=== PATIENT | male | born 1945 | race Caucasian/White ===

== ENCOUNTER 2016-07-17 21:45 | Emergency (ER) | payer OTHER ==
[2016-07-17 21:59] VITALS: RESP 16
--- NOTE | 2016-07-17 22:13 | EDPHY ---
H & P Stated Complaint: dizziness x1w w/ subsequent nausea & vomiting; recent URI, wt loss HPI/ROS: HPI CHIEF COMPLAINT: Dizziness, nausea, neck pain HISTORY OF PRESENT ILLNESS: This patient very pleasant 70-year-old male significant past medical history for hypertension, PTSD, depression, presents emergency room by private vehicle with his for dizziness. He states for the past approximately a week or 6-7 days he has had dizziness intermittently multiple occasions. He tells me this started after he had upper respiratory tract infection that settled into his chest, he states over the past 6 days he has had intermittent episodes of dizziness which she describes as with his eyes the room does not stay steady. He denies room spinning denies ringing in his ears. He does endorse some sinus congestion. However he also tells me that he has some left-sided posterior neck pain at the base of his left occiput. This has been a chronic issue not new. He denies chest pain, shortness of breath, fever. Does endorse recent illness with upper respiratory tract infection. He states at times been so dizzy that he had this hold onto the wall. He denies double vision. Or headache. Denies numbness or tingling or focal weakness. Past Medical History: Hypertension, depression, PTSD Past Surgical History: Denies recent surgery Social History: Denies daily use drugs alcohol tobacco products, lives locally here [place] at bedside Family History: Noncontributory ROS REVIEW OF SYSTEMS: A comprehensive 10 point review of systems is otherwise negative aside from elements mentioned in the history of present illness. Exam Constitutional appears well nontoxic, triage nursing summary reviewed, vital signs reviewed, awake/alert. Eyes normal conjunctivae and sclera, EOMI, PERRLA. HENT Right TM normal, Left TM fluid filled, no bulge, no redness, Anterior sinus: nttp. normal inspection, atraumatic, moist mucus membranes, no epistaxis , neck supple/ no meningismus, no raccoon eyes. Respiratory clear to auscultation bilaterally, normal breath sounds, no respiratory distress, no wheezing. Cardiovascular rate normal, regular rhythm, no murmur, no edema, distal pulses normal. Gastrointestinal soft, non-tender, no rebound, no guarding, normal bowel sounds, no distension, no pulsatile mass. Genitourinary no CVA tenderness. Musculoskeletal no midline vertebral tenderness, full range of motion, no calf swelling, no tenderness of extremities, no meningismus, good pulses, neurovascularly intact. Skin pink, warm, & dry, no rash, skin atraumatic. Neurologic awake, alert and oriented x 3, AAOx3, moves all 4 extremities equally, motor intact, sensory intact, CN II-XII intact, normal cerebellar, normal vision, normal speech. Psychiatric normal mood/affect. Heme/Lymph/Immune no lymphadenopathy. 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 meclizine 25 mg, CT angio head and neck to rule out vascular issue. Re-evaluation: EKG interpretation by me on record in [employer] system. Impression time of EKG 2253, this is sinus rhythm rate of 56, left axis deviation present. Unremarkable EKG no acute ischemia. It is noted there are Q-waves in two, 3, avf. CT scan of the angiogram head and neck with IV contrast. The results of the study are negative for acute abnormality specifically no dissection or arterial injury or occlusion. The study was read by Dr. Thakkar. I viewed the images myself on the PACS system. ED x-ray chest one view: Negative for acute cardiopulmonary disease. Image interpreted by myself. 0100AM: Re-evaluation at this time this patient is resting comfortably. Blood work is reviewed and is unremarkable negative troponin nonischemic EKG CT angiogram head and neck are negative for dissection bleed or occlusion. I feel that his vertigo is most likely peripheral or inner ear. Recommend meclizine and Valium. ENT follow-up. He is agreeable for this plan would like to be discharged home. I did ambulating throughout the emergency room he has a steady gait no ataxia does not feel acutely dizzy no nausea vomiting or chest pain or shortness of breath. He does understand what to return emergency room for which includes chest pain, shortness of breath severe dizziness or vomiting. Source: Patient - Personal History Current Tetanus/Diphtheria Vaccine: Yes Current Tetanus Diphtheria and Acellular Pertussis (TDAP): Yes - Medical/Surgical History Hx Asthma: No Hx Chronic Respiratory Disease: No Hx Diabetes: No Hx Cardiac Disease: No Hx Renal Disease: No Hx Cirrhosis: No Hx Alcoholism: No Hx HIV/AIDS: No Hx Splenectomy or Spleen Trauma: No Other PMH: PSH: L partial knee x2; B v veins LE stripped; R thumb; T&A; wisdom teeth;. PMH: HTN, BPH; PNA; PTSD; depression; prediabetes - Social History Smoking Status: Former smoker Constitutional: Initial Vital Signs Heart Rate 60 07/17/16 21:50 Respiratory Rate 16 07/17/16 21:50 Blood Pressure 134/88 H 07/17/16 21:50 O2 Sat (%) 95 07/17/16 21:50 O2 Delivery Mode Room Air Allergies/Adverse Reactions: cortisone Allergy (Verified 07/08/15 11:26) Tetracyclines Allergy (Verified 07/17/16 22:00) ADHESIVE TAPE Allergy (Uncoded 07/08/15 11:26) Home Medications: Medication Instructions Recorded Ascorbic Acid [C-1000] 1,000 mg PO DAILY PRN 01/23/15 Atenolol [Tenormin 25 mg (*)] 25 mg PO DAILY 01/23/15 Finasteride [Proscar 5 MG (*)] 5 mg PO HS 01/23/15 Herbals/Supplements -Info Only 1 ea PO AD 01/23/15 Hydrochlorothiazide [HCTZ (*)] 25 mg PO DAILY 01/23/15 Magnesium Oxide [Magnesium Oxide 500 mg PO HS 01/23/15 500 mg] Omeprazole [Prilosec 20 mg] 20 mg PO DAILY 01/23/15 Vitamin B Complex [B Complex] 1 each PO DAILY 01/23/15 Aspirin EC [Aspirin EC 325 mg (*)] 325 mg PO DAILY #20 tab 03/05/15 Diazepam [Valium 5 MG (*)] 5 mg PO TID PRN #15 tab 07/18/16 Meclizine HCl [Meclizine HCl 25 mg 25 mg PO BID #20 tab 07/18/16 (RX,OTC)] Medical Decision Making - Diagnostics Imaging Results: Imaging Impressions Chest X-Ray 07/17/16 22:32 Impression: Chest negative for acute cardiopulmonary abnormality. Head CTA 07/17/16 22:32 Impression: Negative CT angiography of the neck with no arterial occlusive disease identified. CT Angiography of the Head With Attention to the [place] Reason for examination: Dizziness; evaluate for arterial occlusive disease. Technique: A spiral acquisition was performed from the base of the brain to the vertex during rapid intravenous administration of 75 mL of Isovue-370. This contrast volume was utilized for evaluation of the neck and head. Axial images are obtained at 0.6 mm thickness and the examination is reviewed on the workstation in multiple window and level settings. Sagittal and coronal reformats are performed and three-dimensional reformations are performed by the radiologist on the workstation. Dose reduction techniques were utilized. Findings: There is excellent arterial opacification. The great vessels at the base of the brain are normal in appearance. The anterior and middle cerebral arteries appear normal. The [place] is intact with both anterior and posterior communicating arteries identified. The basilar artery as well as posterior cerebral arteries are normal. No regions of stenosis are identified. No hemorrhages are seen and no vascular malformations are identified. No areas of abnormal perfusion are identified and there are no findings to suggest cortical ischemia. Impression: Normal CT angiography of the head with attention to the great vessels of the [place]. Note: All stenoses are calculated using NASCET Criteria. Results called and discussed with Maurcie Melendez MD on 07/18/2016 at 0:31 Neck CTA 07/17/16 22:32 Impression: Negative CT angiography of the neck with no arterial occlusive disease identified. CT Angiography of the Head With Attention to the [place] Reason for examination: Dizziness; evaluate for arterial occlusive disease. Technique: A spiral acquisition was performed from the base of the brain to the vertex during rapid intravenous administration of 75 mL of Isovue-370. This contrast volume was utilized for evaluation of the neck and head. Axial images are obtained at 0.6 mm thickness and the examination is reviewed on the workstation in multiple window and level settings. Sagittal and coronal reformats are performed and three-dimensional reformations are performed by the radiologist on the workstation. Dose reduction techniques were utilized. Findings: There is excellent arterial opacification. The great vessels at the base of the brain are normal in appearance. The anterior and middle cerebral arteries appear normal. The [place] is intact with both anterior and posterior communicating arteries identified. The basilar artery as well as posterior cerebral arteries are normal. No regions of stenosis are identified. No hemorrhages are seen and no vascular malformations are identified. No areas of abnormal perfusion are identified and there are no findings to suggest cortical ischemia. Impression: Normal CT angiography of the head with attention to the great vessels of the [place]. Note: All stenoses are calculated using NASCET Criteria. Results called and discussed with Maurice Melendez MD on 07/18/2016 at 0:[address] 07/17/16 23:43 Impression: 1. Negative for intracranial abnormality. 2. Minimal right maxillary sinus disease. Results called and discussed with Maurice Melendez MD on 07/18/2016 at 0:12 result - Data Points Laboratory Results: Laboratory Results 07/17/16 22:13 07/17/16 22:13 07/17/16 07/17/16 07/17/16 23:00 22:13 22:13 WBC RBC Hgb Hct MCV MCH MCHC RDW Plt Count MPV Neut % (Auto) Lymph % (Auto) [place] % (Auto) Eos % (Auto) Baso % (Auto) Nucleat RBC Rel Count Absolute Neuts (auto) Absolute Lymphs (auto) Absolute Monos (auto) Absolute Eos (auto) Absolute Basos (auto) Absolute Nucleated RBC Immature Gran % Immature Gran # PT 12.5 SEC SEC REJ (12.0-15.0) INR 0.94 REJ (0.83-1.16) APTT 38.3 SEC H SEC REJ (23.0-38.0) Sodium 136 mEq/L mEq/L (134-144) Potassium 3.8 mEq/L mEq/L (3.5-5.2) Chloride 102 mEq/L mEq/L (97-110) Carbon Dioxide 26 mEq/l mEq/l (22-31) Anion Gap 8 mEq/L mEq/L (8-16) BUN 21 mg/dL mg/dL (7-23) Creatinine 0.9 mg/dL mg/dL (0.7-1.3) Estimated GFR > 60 Glucose 200 mg/dL H mg/dL (70-100) Calcium 9.6 mg/dL mg/dL (8.5-10.4) Magnesium 2.0 mg/dL mg/dL (1.6-2.3) Total Bilirubin 0.8 mg/dL mg/dL (0.1-1.4) Conjugated Bilirubin 0.3 mg/dL mg/dL (0.0-0.5) Unconjugated Bilirubin 0.5 mg/dL mg/dL (0.0-1.1) AST 39 IU/L IU/L (17-59) ALT 45 IU/L IU/L (21-72) Alkaline Phosphatase 66 IU/L IU/L (38-126) Creatine Kinase 167 IU/L IU/L (0-224) CK-MB (CK-2) Fraction 3.89 ng/mL H ng/mL (0-3.19) CK-MB (CK-2) % 2.3 % % (0.0-4.0) Creatine Kinase Interp NEGATIVE (NEGATIVE) Troponin I < 0.012 ng/mL ng/mL (0-0.034) NT-Pro-B Natriuret Pep 49 pg/mL pg/mL (0-125) Total Protein 6.9 g/dL g/dL (6.3-8.2) Albumin 4.1 g/dL g/dL (3.5-5.0) 07/17/16 22:13 WBC 6.92 10^3/uL 10^3/uL (3.80-9.50) RBC 5.75 10^6/uL 10^6/uL (4.40-6.38) Hgb 18.2 g/dL H g/dL (13.7-17.5) Hct 50.8 % % (40.0-51.0) MCV 88.3 fL fL (81.5-99.8) MCH 31.7 pg pg (27.9-34.1) MCHC 35.8 g/dL g/dL (32.4-36.7) RDW 12.9 % % (11.5-15.2) Plt Count 274 10^3/uL 10^3/uL (150-400) MPV 9.6 fL fL (8.7-11.7) Neut % (Auto) 48.7 % % (39.3-74.2) Lymph % (Auto) 32.4 % % (15.0-45.0) [place] % (Auto) 11.1 % % (4.5-13.0) Eos % (Auto) 6.4 % % (0.6-7.6) Baso % (Auto) 1.0 % % (0.3-1.7) Nucleat RBC Rel Count 0.0 % % (0.0-0.2) Absolute Neuts (auto) 3.37 10^3/uL 10^3/uL (1.70-6.50) Absolute Lymphs (auto) 2.24 10^3/uL 10^3/uL (1.00-3.00) Absolute Monos (auto) 0.77 10^3/uL 10^3/uL (0.30-0.80) Absolute Eos (auto) 0.44 10^3/uL H 10^3/uL (0.03-0.40) Absolute Basos (auto) 0.07 10^3/uL 10^3/uL (0.02-0.10) Absolute Nucleated RBC 0.00 10^3/uL 10^3/uL (0-0.01) Immature Gran % 0.4 % % (0.0-1.1) Immature Gran # 0.03 10^3/uL 10^3/uL (0.00-0.10) PT INR APTT Sodium Potassium Chloride Carbon Dioxide Anion Gap BUN Creatinine Estimated GFR Glucose Calcium Magnesium Total Bilirubin Conjugated Bilirubin Unconjugated Bilirubin AST ALT Alkaline Phosphatase Creatine Kinase CK-MB (CK-2) Fraction CK-MB (CK-2) % Creatine Kinase Interp Troponin I NT-Pro-B Natriuret Pep Total Protein Albumin Medications Given: Discontinued Medications Sodium Chloride (Ns) 1,000 mls @ 0 mls/hr IV ONCE ONE PRN Reason: Wide Open Stop: 07/17/16 22:33 Last Admin: 07/17/16 22:37 Dose: 1,000 mls Meclizine HCl (Meclizine Hcl) 25 mg PO EDNOW ONE Stop: 07/17/16 22:34 Last Admin: 07/17/16 23:02 Dose: 25 mg Departure - Departure Disposition: Home, Routine, Self-Care Clinical Impression: Dizziness Condition: Good Instructions: Dizziness (ED), Vertigo (ED) Additional Instructions: 1. Please stay well-hydrated drink lots of fluids. 2. Return emergency room if develops chest pain, shortness of breath severe dizziness severe vomiting. Referrals: VALENZA,UNKNOWN [Other] - As per Instructions Talha Fraser MD [Medical Doctor] - As per Instructions Prescriptions: Diazepam [Valium 5 MG (*)] 5 mg PO TID PRN #15 tab PRN Reason: Spasms Meclizine HCl [Meclizine HCl 25 mg (RX,OTC)] 25 mg PO BID #20 tab
[2016-07-17] MEDS ORDERED: NS 1,000 ML IV ONE (22:32)
[2016-07-17] MEDS ORDERED: MECLIZINE HCL 25 MG TAB PO ONE (22:33)
[2016-07-17 22:51] LABS: ALANINE AMINOTRANSFERASE 45 IU/L (21-72); ALBUMIN 4.1 g/dL (3.5-5.0); ALKALINE PHOSPHATASE 66 IU/L (38-126); ANION GAP 8 mEq/L (8-16); ASPARTATE AMINOTRANSFERASE 39 IU/L (17-59); BILIRUBIN,TOTAL 0.8 mg/dL (0.1-1.4); BILIRUBIN-CONJUGATED 0.3 mg/dL (0.0-0.5); BILIRUBIN-UNCONJUGATED 0.5 mg/dL (0.0-1.1); CALCIUM 9.6 mg/dL (8.5-10.4); CARBON DIOXIDE 26 mEq/l (22-31); CHLORIDE 102 mEq/L (97-110); CREATININE 0.9 mg/dL (0.7-1.3); GLOMERULAR FILTRATION RATE > 60; GLUCOSE 200 mg/dL (70-100); POTASSIUM 3.8 mEq/L (3.5-5.2); SODIUM 136 mEq/L (134-144); TOTAL PROTEIN 6.9 g/dL (6.3-8.2)
[2016-07-17 22:54] LABS: % IMMATURE GRANULYOCYTES 0.4 % (0.0-1.1); ABSOLUTE IMMATURE GRANULOCYTES 0.03 10^3/uL (0.00-0.10); ADD DIFF? NO; ADD MORPH? NO; ADD SCAN? NO; ATYPICAL LYMPHOCYTE FLAG 0 (0-99); FRAGMENT RBC FLAG 0 (0-99); HEMATOCRIT 50.8 % (40.0-51.0); HEMOGLOBIN 18.2 g/dL (13.7-17.5); LEFT SHIFT FLG 0 (0-99); LIPEMIA HEMOLYSIS FLAG 90 (0-99); MEAN CELL HEMOGLOBIN 31.7 pg (27.9-34.1); MEAN CELL HEMOGLOBIN CONCENTR. 35.8 g/dL (32.4-36.7); MEAN CELL VOLUME 88.3 fL (81.5-99.8); MEAN PLATELET VOLUME 9.6 fL (8.7-11.7); PLATELET CLUMPS FLAG 0 (0-99); PLATELET COUNT 274 10^3/uL (150-400); RED BLOOD CELL COUNT 5.75 10^6/uL (4.40-6.38); RED CELL DISTRIBUTION WIDTH 12.9 % (11.5-15.2)
--- NOTE | 2016-07-17 22:58 | CPEKG ---
Heart Rate: 55 RR Interval: 1091 P-R Interval: 196 QRSD Interval: 104 QT Interval: 440 QTC Interval: 421 P [place]: 32 QRS [place]: -37 T Wave [place]: 25 EKG Severity - OTHERWISE NORMAL ECG - EKG Impression: SINUS RHYTHM EKG Impression: LEFT AXIS DEVIATION Electronically Signed By: Maurice Melendez 18-Jul-2016 07:05:26
[2016-07-17 23:03] LABS: TROPONIN I < 0.012 ng/mL (0-0.034)
[2016-07-17 23:07] LABS: CK-MB INTERPRETATION NEGATIVE (NEGATIVE); CREATINE KINASE-MB FRACTION 3.89 ng/mL (0-3.19)
[2016-07-17 23:14] LABS: INR 0.94 (0.83-1.16); PROTIME(PATIENT) 12.5 SEC (12.0-15.0)
[2016-07-17 23:15] LABS: APTT 38.3 SEC (23.0-38.0)
[2016-07-17] MEDS ORDERED: IOPAMIDOL (ISOVUE 370) 100 ML BTL IV ONE (23:19)
[2016-07-18] MEDS ORDERED: DIAZEPAM 10 MG/2 ML SYR IVP ONE (00:59)
[2016-07-18 01:15] VITALS: BP 156/97; PULSE 62; TEMP 98.2; O2SAT 95
== END 2016-07-18 01:31 | disposition home or self-care (01) ==
DX: R42 Dizziness and giddiness (principal); I10 Essential (primary) hypertension; Z87.891 Personal history of nicotine dependence; Z79.82 Long term (current) use of aspirin
CPT/HCPCS: 70450; 70496; 70498; 71010; 93005; 96361; 96374; 99285; Q9967

== ENCOUNTER → 2017-04-21 | Outpatient (CLI) | payer OTHER | LOC: FIMAGING 15:27 | DX: M50.31 Other cervical disc degeneration, high cervical region (principal); M50.321 Other cervical disc degeneration at C4-C5 level; M50.322 Other cervical disc degeneration at C5-C6 level; M50.323 Other cervical disc degeneration at C6-C7 level; M89.38 Hypertrophy of bone, other site ==